=== PATIENT | female | born 1990 | race Hispanic/Latino ===

== ENCOUNTER 2021-09-04 01:21 | Emergency (ER) | payer MEDICAID, OTHER ==
[~2021-09-04] VITALS: Ht 157.5 cm; Wt 107.5 kg
[~2021-09-04 01:21] MED LIST: DOCU240C80 PO; FERR-82 PO; IBUP-2071 PO; TYL3 PO
[2021-09-04 02:14] LABS: BASOPHILS % (AUTO) 0.5 % (0.0-5.0); HEMATOCRIT 39.3 % (36-48); LYMPHOCYTES % (AUTO) 33.6 % (21.0-51.0); MEAN CORPUSCULAR HEMOGLOBIN 22.8 pg (27.0-33.0); MEAN CORPUSCULAR HGB CONC 31.6 g/dL (32.0-36.0); MEAN CORPUSCULAR VOLUME 72.1 fL (79-99); MONOCYTES % (AUTO) 6.5 % (3.0-13.0); NEUTROPHILS % (AUTO) 57.1 % (40.0-77.0); PLATELET COUNT (AUTO) 318 K/uL (130-400); RED BLOOD CELL COUNT(AUTO) 5.45 MIL/uL (4.00-5.50); RED CELL DISTRIBUTION WIDTH 14.6 % (11.0-15.5); WHITE BLOOD COUNT (AUTO) 10.2 K/uL (4.8-10.8)
[2021-09-04 02:15] LABS: APPEARANCE,URINE Cloudy (CLEAR); BILIRUBIN,URINE Negative (NEGATIVE); COLOR,URINE Dark Yellow (YELLOW); GLUCOSE, URINE (UA) TRACE mg/dL (NEGATIVE); KETONES,URINE Trace mg/dL (NEGATIVE); LEUKOCYTE ESTERASE ,URINE Trace (NEGATIVE); NITRATE,URINE Negative (NEGATIVE); OCCULT BLOOD,URINE Negative (NEGATIVE); PH,URINE 5.5 (5.0-8.0); PROTEIN,URINE POS 1+ mg/dL (NEGATIVE)
[2021-09-04 02:25] LABS: BACTERIA,URINE Rare /HPF (None Seen); MUCUS,URINE Many LPF (None Seen); RBC,URINE None Seen /HPF (0-1); SQUAMOUS EPITHELIAL CELL,UR Moderate /HPF (0-2)
[2021-09-04 02:27] LABS: CREATININE 0.6 mg/dL (0.5-1.5); POTASSIUM 3.6 mmol/L (3.5-5.1)
[2021-09-04 02:32] LABS: ALBUMIN 3.6 g/dL (3.5-5.0); BILIRUBIN,TOTAL 0.4 mg/dL (0.2-1.0); TOTAL PROTEIN, SERUM 7.7 g/dL (6.0-8.3)
[2021-09-04] MEDS ORDERED: 0.9%NACL 1000ML 1,002 ML IV ONE (04:00)
[2021-09-04] MEDS ORDERED: LOPERAMIDE 1 MG/7.5 ML UDCUP PO SCH (04:00)
[2021-09-04] MEDS ORDERED: ONDANSETRON 4MG INJ IVP ONE (04:00)
[2021-09-04] MEDS ORDERED: FAMOTIDINE 20MG VIAL IV ONE (04:00)
[2021-09-04] MEDS ORDERED: LOPERAMIDE HCL 2 MG CAP PO ONE (04:00)
[2021-09-04 04:20] VITALS: BP 136/85
[2021-09-04] MEDS ORDERED: ONDA8TAB12 PO (05:18)
[2021-09-04] MEDS ORDERED: FAMO-136 PO (05:19)
== END 2021-09-04 05:35 | disposition home or self-care (01) ==
LOC: EDH 01:21
DX: E86.0 Dehydration (principal); R19.7 Diarrhea, unspecified; R51.9 Headache, unspecified; R11.0 Nausea; Z79.1 Long term (current) use of non-steroidal anti-inflammatories (NSAID); Z88.6 Allergy status to analgesic agent
CPT/HCPCS: 36415; 80053; 81001; 81025; 85025; 87804 ×2; 87880; 96361; 96374; 96375; 99284; J2405; J3490; J7030

== ENCOUNTER 2022-07-01 16:08 | Emergency (ER) | payer OTHER ==
[~2022-07-01] VITALS: Ht 160 cm; Wt 116.1 kg
[~2022-07-01 16:08] MED LIST changes: +FAMO-136 PO; +ONDA8TAB12 PO
[2022-07-01 16:59] LABS: BASOPHILS % (AUTO) 0.4 % (0.0-5.0); EOSINOPHILS % (AUTO) 1.5 % (0.0-8.0); LYMPHOCYTES % (AUTO) 34.4 % (21.0-51.0); MEAN CORPUSCULAR HEMOGLOBIN 21.9 pg (27.0-33.0); MEAN CORPUSCULAR HGB CONC 31.8 g/dL (32.0-36.0); MEAN CORPUSCULAR VOLUME 68.9 fL (79-99); MONOCYTES % (AUTO) 4.3 % (3.0-13.0); NEUTROPHILS % (AUTO) 59.1 % (40.0-77.0); PLATELET COUNT (AUTO) 446 K/uL (130-400); RED BLOOD CELL COUNT(AUTO) 5.66 MIL/uL (4.00-5.50); RED CELL DISTRIBUTION WIDTH 14.8 % (11.0-15.5); WHITE BLOOD COUNT (AUTO) 13.6 K/uL (4.8-10.8)
[2022-07-01 17:11] LABS: CREATININE 0.7 mg/dL (0.5-1.5); POTASSIUM 3.9 mmol/L (3.5-5.1)
[2022-07-01 17:12] LABS: APPEARANCE,URINE CLOUDY (CLEAR); BACTERIA,URINE RARE /HPF (None Seen); BILIRUBIN,URINE NEGATIVE (NEGATIVE); COLOR,URINE YELLOW (YELLOW); GLUCOSE, URINE (UA) >=1000 mg/dL (NEGATIVE); KETONES,URINE 5 mg/dL (NEGATIVE); LEUKOCYTE ESTERASE ,URINE 25 Leu/uL (NEGATIVE); MUCUS,URINE FEW LPF (None Seen); NITRATE,URINE NEGATIVE (NEGATIVE); OCCULT BLOOD,URINE MODERATE (NEGATIVE); PH,URINE 5.5 (5.0-8.0); PROTEIN,URINE 10 mg/dL (NEGATIVE); SQUAMOUS EPITHELIAL CELL,UR MOD /HPF (0-2); UROBILINOGEN,URINE 0.2 mg/dL (0.2-1.0); YEAST,URINE BUDDING FEW /HPF (None Seen)
[2022-07-01 17:17] LABS: ALBUMIN 3.6 g/dL (3.5-5.0); TOTAL PROTEIN, SERUM 8.1 g/dL (6.0-8.3)
[2022-07-01] MEDS ORDERED: SULF1TAB42 PO (18:50)
[2022-07-01] MEDS ORDERED: SULFAMETHOX-TMP DS 800/160 TAB PO SCH (19:00)
[2022-07-01 19:18] VITALS: BP 129/65
== END 2022-07-01 19:18 | disposition home or self-care (01) ==
LOC: EDH 16:08
DX: N39.0 Urinary tract infection, site not specified (principal); I10 Essential (primary) hypertension; Z79.1 Long term (current) use of non-steroidal anti-inflammatories (NSAID); Z79.899 Other long term (current) drug therapy; Z88.6 Allergy status to analgesic agent; Z20.822 Contact with and (suspected) exposure to COVID-19
CPT/HCPCS: 99285; 71045; 87635; 84484; 80053; 85025; 87088; 87804 ×2; 81001; 36415; 93005; C9803

== ENCOUNTER 2023-09-02 11:38 | Inpatient (IN) | payer MEDICAID ==
[~2023-09-02] VITALS: Ht 160 cm; Wt 119.7 kg
[~2023-09-02 11:38] MED LIST changes: +SULF1TAB42 PO
[2023-09-02] MEDS ORDERED: CALDOLOR 800MG+NS 250ML 250 ML IV PRN (12:00)
[2023-09-02] MEDS ORDERED: CEFAZOLIN SODIUM 1 GM VIAL IVPB PRN (12:00)
[2023-09-02] MEDS ORDERED: CEFAZOLIN SODIUM 3 GM in DEXTROSE 5%-WATER 100 ML IVPB PRN (12:30)
[2023-09-02 12:44] LABS: HEMATOCRIT 35.1 % (36-48); MEAN CORPUSCULAR HEMOGLOBIN 27.7 pg (27.0-33.0); MEAN CORPUSCULAR HGB CONC 34.8 g/dL (32.0-36.0); MEAN CORPUSCULAR VOLUME 79.6 fL (79-99); RED BLOOD CELL COUNT(AUTO) 4.41 MIL/uL (4.00-5.50); RED CELL DISTRIBUTION WIDTH 17.4 % (11.0-15.5); WHITE BLOOD COUNT (AUTO) 12.3 K/uL (4.8-10.8)
[2023-09-02] MEDS: CEFAZOLIN SODIUM 2 GM VIAL ONE (13:18)
[2023-09-02] MEDS: CEFAZOLIN SODIUM 1 GM VIAL ONE (13:19)
[2023-09-02] MEDS ORDERED: DEXAMETHASONE SOD PHOSPHATE 10MG/ML 1ML VIAL ONE (13:24)
[2023-09-02] MEDS ORDERED: FENTANYL CITRATE PF 50 MCG/1 ML 2ML VIAL ONE (13:25)
[2023-09-02] MEDS ORDERED: MORPHINE PF 100MG/10ML AMP IV ONE (13:25)
[2023-09-02] MEDS ORDERED: OXYTOCIN 10 USP UNITS/ML ONE (13:25)
[2023-09-02] MEDS: CEFAZOLIN SODIUM 3 GM VIAL IVPB ONE (13:50)
[2023-09-02 15:03] LABS: HIV 1&2 ANTIBODY Non-Reactive (Negative); HIV-1 p24 Antigen Non-Reactive (Negative)
[2023-09-02 15:09] LABS: RAPID PLASMA REAGIN NONREACTIVE (NONREACTIVE)
[2023-09-02] MEDS ORDERED: 0.9%NACL 10ML VIAL IVP PRN (16:00)
[2023-09-02] MEDS: OXYTOCIN-LR 30 UNITS/500ML 500 ML IV PRN (16:37)
[2023-09-02] MEDS: LORATADINE 10 MG TABLET PO PRN (17:42)
[2023-09-02 18:05] VITALS: BP 113/68; PULSE 71; RESP 20
[2023-09-02] MEDS ORDERED: PREN1TAB26 PO (18:08)
[2023-09-02 19:30] VITALS: BP 130/74; PULSE 67; RESP 20
[2023-09-02] MEDS ORDERED: DiphenhydrAMINE HCL 50 MG/ML VIAL IV PRN (20:30)
[2023-09-02] MEDS: CEFAZOLIN SODIUM 2 GM VIAL IVPB SCH (21:24)
[2023-09-02 23:20] VITALS: BP 130/69; PULSE 70; RESP 18
[2023-09-03] MEDS: ONDANSETRON 4MG INJ ONE ×2 (00:28→01:17)
[2023-09-03] MEDS: LACTATED RINGERS 1000ML 1,000 ML IV SCH (00:48)
[2023-09-03] MEDS ORDERED: LANOLIN 30GM OINTMENT TP PRN (01:30)
[2023-09-03] MEDS ORDERED: ACETAMINOPHEN 500 MG TABLET PO PRN (01:30)
[2023-09-03] MEDS ORDERED: ACETAMINOPHEN WITH CODEINE 1 TAB TAB PO PRN (01:30)
[2023-09-03] MEDS: CALDOLOR 800MG+NS 250ML 250 ML IV SCH (02:07)
[2023-09-03] MEDS: PROMETHAZINE HCL 25 MG/ML 1ML AMPULE IM PRN (03:19)
[2023-09-03] MEDS: MEPERIDINE-PF 75 MG/ML SYG IM PRN (03:20)
[2023-09-03 03:26] VITALS: BP 112/73; PULSE 62; RESP 18
[2023-09-03 06:46] VITALS: BP 126/77; PULSE 82; RESP 18
[2023-09-03 06:52] LABS: HEMATOCRIT 31.2 % (36-48); MEAN CORPUSCULAR HEMOGLOBIN 27.7 pg (27.0-33.0); MEAN CORPUSCULAR VOLUME 81.7 fL (79-99); RED BLOOD CELL COUNT(AUTO) 3.82 MIL/uL (4.00-5.50); RED CELL DISTRIBUTION WIDTH 17.2 % (11.0-15.5); WHITE BLOOD COUNT (AUTO) 15.4 K/uL (4.8-10.8)
[2023-09-03 07:05] LABS: BILIRUBIN,TOTAL 0.3 mg/dL (0.2-1.0); CREATININE 0.5 mg/dL (0.5-1.0); POTASSIUM 4.4 mmol/L (3.5-5.1); TOTAL PROTEIN, SERUM 5.8 g/dL (6.0-8.3)
[2023-09-03] MEDS: DOCUSATE SODIUM 100 MG CAP PO SCH (08:48)
[2023-09-03] MEDS: SIMETHICONE 80 MG TAB.CHEW PO PRN (08:48)
[2023-09-03] MEDS: HYDROCODONE/ACETAMINOPHEN 5/325 MG TAB PO PRN (08:50)
[2023-09-03] MEDS: DIPHENHYDRAMINE HCL 25 MG CAPSULE PO PRN (08:54)
[2023-09-03] MEDS ORDERED: BISACODYL 10 MG SUPP.RECT RC PRN (09:00)
[2023-09-03 10:55] VITALS: BP 108/57; PULSE 68; RESP 18
[2023-09-03] MEDS: IBUPROFEN 600 MG TABLET PO PRN (11:31)
[2023-09-03] MEDS: DEXTROSE 5 %-0.45 % NACL 1,000 ML IV PRN (14:32)
[2023-09-03 16:00] VITALS: BP 110/75; PULSE 70; RESP 18
== END 2023-09-03 18:35 | disposition home or self-care (01) | DRG 540 ==
LOC: LDH 11:38 → WSH 18:02
PROVIDERS: ADMIT Obstetrics & Gynecology; ATTEND Obstetrics & Gynecology
PROC: 10D00Z1 Extraction of Products of Conception, Low, Open Approach (ICD-10-PCS; principal; 2023-09-02 13:30)
DX: O34.211 Maternal care for low transverse scar from previous cesarean delivery (principal); O11.4 Pre-existing hypertension with pre-eclampsia, complicating childbirth; O24.12 Pre-existing type 2 diabetes mellitus, in childbirth; O99.214 Obesity complicating childbirth; O99.02 Anemia complicating childbirth; Z37.0 Single live birth; O99.824 Streptococcus B carrier state complicating childbirth; Z3A.37 37 weeks gestation of pregnancy
CPT/HCPCS: 36415; 59510; 80053; 82947; 85027; 86592; 86701; 86850; 86900; 86901; 87340; 87390; A4344; A4606; G0378; J0690; J1100; J1200; J1741; J2175; J2274; J2405; J2550; J2590; J3010; J7120; Q0163; A4248; A4649; A9272